=== PATIENT | female | born 1930 | race Caucasian/White ===

== ENCOUNTER 2018-08-26 07:36 | Day surgery (SDC) ==
[2018-08-26] MEDS: BETADINE OPTH PREP OP PRN ×2 (09:05→09:48)
[2018-08-26] MEDS: TETRACAINE 0.5% UNIT-DOSE OP PRN ×2 (09:05→09:48)
[2018-08-26] MEDS: CYCLOGYL 2% OPTH OP PRN ×3 (09:06→09:16)
[2018-08-26] MEDS ORDERED: ZOFRAN 4 MG/2 ML IVP ONE (09:25)
[2018-08-26] MEDS ORDERED: BRIMONIDINE TARTRATE 0.2% OPTH SOL OP PRN (09:25)
[2018-08-26] MEDS ORDERED: LIDOCAINE 1% 20 ML MDV ID STA (09:25)
[2018-08-26] MEDS ORDERED: BSS WITH EPINEPHRINE OP ONE (09:25)
[2018-08-26] MEDS ORDERED: DEX-MOXI-KETOR OPTH INJ 1/0.5/0.4 MG/ML IO ONE (09:25)
[2018-08-26] MEDS ORDERED: LIDOCAINE 1%/PHENYLEPHRINE 1.5% BSS (SURGERY) INTRAOCULA ONE (09:25)
[2018-08-26 09:29] VITALS: TEMP 98.4
[2018-08-26] MEDS ORDERED: VERSED ONE (09:57)
[2018-08-26] MEDS ORDERED: SUBLIMAZE ONE (09:57)
[2018-08-26] MEDS ORDERED: ZOFRAN 4 MG/2 ML ONE (09:57)
[2018-08-26 16:15] VITALS: BP 128/78
== END 2018-08-26 11:05 | disposition home or self-care (01) ==
LOC: SURG 07:36
PROVIDERS: ATTEND Ophthalmology
DX: H25.811 Combined forms of age-related cataract, right eye (principal)

== ENCOUNTER 2018-09-03 08:20 | Day surgery (SDC) | payer OTHER ==
[2018-09-03] MEDS: TETRACAINE 0.5% UNIT-DOSE OP PRN ×2 (09:15→09:50)
[2018-09-03] MEDS: BETADINE OPTH PREP OP PRN ×2 (09:15→09:50)
[2018-09-03] MEDS: CYCLOGYL 2% OPTH OP PRN ×2 (09:16→09:21)
[2018-09-03] MEDS ORDERED: ZOFRAN 4 MG/2 ML IVP ONE (09:23)
[2018-09-03] MEDS ORDERED: BRIMONIDINE TARTRATE 0.2% OPTH SOL OP PRN (09:23)
[2018-09-03] MEDS ORDERED: LIDOCAINE 1% 20 ML MDV ID STA (09:23)
[2018-09-03] MEDS ORDERED: BSS WITH EPINEPHRINE OP ONE (09:23)
[2018-09-03] MEDS ORDERED: LIDOCAINE 1%/PHENYLEPHRINE 1.5% BSS (SURGERY) INTRAOCULA ONE (09:23)
[2018-09-03] MEDS ORDERED: DEX-MOXI-KETOR OPTH INJ 1/0.5/0.4 MG/ML IO ONE (09:23)
[2018-09-03 09:27] VITALS: TEMP 97.6
[2018-09-03] MEDS ORDERED: SUBLIMAZE ONE (09:56)
[2018-09-03] MEDS ORDERED: ZOFRAN 4 MG/2 ML ONE (09:56)
[2018-09-03] MEDS ORDERED: VERSED ONE (09:56)
[2018-09-04 13:04] VITALS: BP 125/67
== END 2018-09-03 11:10 | disposition home or self-care (01) ==
LOC: SURG 08:20
PROVIDERS: ATTEND Ophthalmology
DX: H25.812 Combined forms of age-related cataract, left eye (principal)